=== PATIENT | male | born 1965 ===

== ENCOUNTER 2016-09-03 17:51 | Emergency (ER) | payer SELFPAY ==
[2016-09-03 17:58] VITALS: BP 132/80; PULSE 71; RESP 16; TEMP 98; O2SAT 98; BMI 29.1
--- NOTE | 2016-09-03 18:10 | ED PDOC ---
Arrival/HPI - General Chief Complaint: Finger,Hand,&Wrist Time Seen by Provider: 09/03/16 17:59 Historian: Patient - History of Present Illness Narrative History of Present Illness (Text): 09/03/16 18:07 51yo male with no PMHx who present with complaint of right finger pain. States he was pinched by a nail a month ago. the area was swollen s/p and then improved. Came to the ED because he started having pain and swelling of the finger a week ago. He denies fever, chills, any other complaint. Past Medical History - Provider Review Nursing Documentation Reviewed: Yes - Psychiatric Hx Substance Use: No - Surgical History Hx Orthopedic Surgery: Yes (R Arm) Family/Social History - Physician Review Nursing Documentation Reviewed: Yes Family/Social History: Unknown Family HX Smoking Status: Never Smoked Hx Alcohol Use: No Hx Substance Use: No Allergies/Home Meds Allergies/Adverse Reactions: Allergies apple Allergy (Verified 07/19/15 12:29) ANAPHYLAXIS avocado Allergy (Verified 07/19/15 12:29) ANAPHYLAXIS peach Allergy (Verified 07/19/15 12:29) ANAPHYLAXIS strawberry Allergy (Verified 07/19/15 12:29) ANAPHYLAXIS Review of Systems - Physician Review All systems were reviewed & negative as marked: Yes - Review of Systems Constitutional: Normal Eyes: Normal ENT: Normal Respiratory: Normal Cardiovascular: Normal Gastrointestinal: Normal Genitourinary Male: Normal Musculoskeletal: Normal Skin: Abscess (Right thumb) Neurological: Normal Endocrine: Normal Hemo/Lymphatic: Normal Psychiatric: Normal Physical Exam Vital Signs Reviewed: Yes Vital Signs Temp Pulse Resp BP Pulse Ox 09/03/16 17:55 98.0 F 71 16 132/80 98 Temperature: Afebrile Blood Pressure: Normal Pulse: Regular Respiratory Rate: Normal Appearance: Positive for: Well-Appearing, Non-Toxic, Comfortable Pain Distress: None Mental Status: Positive for: Alert and Oriented X 3 - Systems Exam Head: Present: Atraumatic, Normocephalic Pupils: Present: PERRL Extroacular Muscles: Present: EOMI Conjunctiva: Present: Normal Mouth: Present: Moist Mucous Membranes Neck: Present: Normal Range of Motion Respiratory/Chest: Present: Clear to Auscultation, Good Air Exchange. No: Respiratory Distress, Accessory Muscle Use Cardiovascular: Present: Regular Rate and Rhythm, Normal S1, S2. No: Murmurs Abdomen: Present: Normal Bowel Sounds. No: Tenderness, Distention, Peritoneal Signs Back: Present: Normal Inspection Upper Extremity: Present: Normal Inspection. No: Cyanosis, Edema Lower Extremity: Present: Normal Inspection. No: Edema Neurological: Present: GCS=15, CN II-XII Intact, Speech Normal Skin: Present: Warm, Dry, Normal Color, Abscess (Fluctuant tender abscess noted on right thumb nail base.). No: Rashes Psychiatric: Present: Alert, Oriented x 3, Normal Insight, Normal Concentration Medical Decision Making - Medication Orders Current Medication Orders: Discontinued Medications Tramadol HCl (Ultram) 50 mg PO STAT STA Stop: 09/03/16 18:07 Trimethoprim/Sulfamethoxazole (Bactrim Ds Tab) 1 tab PO STAT STA PRN Reason: Protocol Stop: 09/03/16 18:12 Disposition/Present on Arrival - Present on Arrival Any Indicators Present on Arrival: No History of DVT/PE: No History of Uncontrolled Diabetes: No Urinary Catheter: No History of Decub. Ulcer: No History Surgical Site Infection Following: None - Disposition Have Diagnosis and Disposition been Completed?: Yes Diagnosis: Paronychia of finger Disposition: HOME/ ROUTINE Disposition Time: 18:20 Patient Plan: Discharge Patient Problems: Current Active Problems Problem Status Diagnosed Paronychia of finger Acute Condition: STABLE Discharge Instructions (ExitCare): Paronychia (ED) Additional Instructions: Take medication as directed Follow up with your Doctor Return to ED for any new or worsening symptoms Prescriptions: Sulfamethoxazole/Trimethoprim [Bactrim DS 800 mg-160 mg] 1 tab PO BID #20 tab Referrals: [facility] [place] [Outside] - Follow up with primary - Incision & Drainage Of Abscess Anesthesia: Lidocaine 1% (5ml) Prep Used: Betadine Procedure: Incised W/Scalpel Blade#: (11), Drained Pus (Only blood was expressed ), Irrigated Cavity W/Saline
[2016-09-03] MEDS ORDERED: Tmp-Smz 800 mg-160 mg DS Tab PO STA (18:11)
== END 2016-09-03 18:29 | disposition home or self-care (01) ==
LOC: ED 17:51
DX: L03.011 Cellulitis of right finger (principal)